=== PATIENT | male | born 1970 | race Caucasian/White ===

== ENCOUNTER 2017-07-21 16:20 | Emergency (ER) | payer MEDICAID, MEDICARE ==
[~2017-07-21] VITALS: Ht 177.8 cm; Wt 90.0 kg
[2017-07-21] MEDS ORDERED: SODIUM CHLORIDE 0.9% 1,000 ML IV ONE (16:24)
[2017-07-21] MEDS ORDERED: SODIUM CHLORIDE 0.9% 1,000ML IVBOLUS ONE (16:30)
[2017-07-21] MEDS ORDERED: SODIUM CHLORIDE FLUSH 10ML SYR IVF ONE (16:30)
[2017-07-21 16:47] LABS: BASOPHILS # (AUTO) 0.04 x10^3/uL (0-0.1); BASOPHILS % (AUTO) 1 % (0-1); EOSINOPHILS # (AUTO) 0.15 x10^3/uL (0-0.4); EOSINOPHILS % (AUTO) 2 % (1-7); LYMPHOCYTES # (AUTO) 2.83 x10^3/uL (1-3.4); LYMPHOCYTES % (AUTO) 41 % (22-44); MD NO; MEAN CORPUSCULAR HEMOGLOBIN 31.7 pg (27.5-34.5); MEAN CORPUSCULAR HGB CONC 33.3 g/dL (33.2-36.2); MEAN CORPUSCULAR VOLUME 95.1 fL (81-97); MEAN PLATELET VOLUME 8.6 fL (7.4-10.4); MONOCYTES # (AUTO) 0.47 x10^3/uL (0.2-0.8); MONOCYTES % (AUTO) 7 % (2-9); NEUTROPHILS # (AUTO) 3.48 x10^3/uL (1.8-6.8); NEUTROPHILS % (AUTO) 50 % (42-75); PLATELET COUNT 237 x10^3/uL (130-400); RED BLOOD COUNT 4.36 x10^6/uL (4.38-5.82); RED CELL DISTRIBUTION WIDTH 12.8 % (9.4-14.8)
[2017-07-21 16:59] LABS: ALBUMIN 3.3 g/dL (3.4-5.0); ANION GAP 9 mmol/L (5-15); CALCIUM 8.3 mg/dL (8.5-10.1); CHLORIDE 111 mmol/L (98-107); CREATININE 0.75 mg/dL (0.7-1.3); SALICYLATE LEVEL 2.4 mg/dL (2.8-20.0)
[2017-07-21 17:00] LABS: ACETAMINOPHEN < 2 mcg/mL (10-30)
[2017-07-21 21:15] VITALS: BP 102/66
== END 2017-07-21 21:31 | disposition home or self-care (01) ==
LOC: ED 16:35
DX: F10.120 Alcohol abuse with intoxication, uncomplicated (principal)
CPT/HCPCS: 36415; 70450; 80048; 80307; 80329; 82040; 85025; 93005; 96360; 96361; 99285; J7030; G0480

== ENCOUNTER 2017-07-22 00:22 | Emergency (ER) | payer MEDICARE ==
[~2017-07-22] VITALS: Ht 167.6 cm; Wt 75.8 kg
[2017-07-22 00:32] VITALS: BP 151/81
== END 2017-07-22 01:40 | disposition home or self-care (01) ==
LOC: ED 00:56
DX: S09.90XA Unspecified injury of head, initial encounter (principal); W19.XXXA Unspecified fall, initial encounter; Y93.89 Activity, other specified; Y99.8 Other external cause status; Y92.89 Other specified places as the place of occurrence of the external cause; F15.10 Other stimulant abuse, uncomplicated; Z72.9 Problem related to lifestyle, unspecified
CPT/HCPCS: 99281

== ENCOUNTER 2017-07-26 18:09 | Emergency (ER) | payer MEDICARE ==
[~2017-07-26] VITALS: Ht 167.6 cm; Wt 78.0 kg
[2017-07-26 18:19] VITALS: BP 123/77
== END 2017-07-26 19:06 | disposition left against medical advice (07) ==
LOC: ED 19:00
DX: R51 Headache (principal); R11.0 Nausea; R19.7 Diarrhea, unspecified; Z59.0 Homelessness
CPT/HCPCS: 99283

== ENCOUNTER 2017-07-27 01:28 | Emergency (ER) | payer MEDICARE ==
[~2017-07-27] VITALS: Ht 167.6 cm; Wt 75.6 kg
[2017-07-27 01:32] VITALS: BP 133/83
== END 2017-07-27 01:58 | disposition left against medical advice (07) ==
LOC: ED 01:52
DX: Z53.21 Procedure and treatment not carried out due to patient leaving prior to being seen by health care provider (principal)